=== PATIENT | female | born 1930 | race Caucasian/White ===

== ENCOUNTER → 2017-01-09 | Outpatient (CLI) | payer OTHER | END | disposition home or self-care (01) | LOC: PCVCCLINIC 15:00 | PROVIDERS: ATTEND Internal Medicine Cardiovascular Disease | DX: I63.532 Cerebral infarction due to unspecified occlusion or stenosis of left posterior cerebral artery (principal); I10 Essential (primary) hypertension; E78.5 Hyperlipidemia, unspecified; R47.1 Dysarthria and anarthria; Z88.0 Allergy status to penicillin; Z88.5 Allergy status to narcotic agent; Z88.8 Allergy status to other drugs, medicaments and biological substances; Z79.82 Long term (current) use of aspirin; Z79.899 Other long term (current) drug therapy; Z86.73 Personal history of transient ischemic attack (TIA), and cerebral infarction without residual deficits | CPT/HCPCS: 80061; 93005; G0463 ==

== ENCOUNTER → 2017-11-14 | Outpatient (CLI) | payer OTHER | END | disposition home or self-care (01) | LOC: PCVCCLINIC 12:22 | DX: I65.23 Occlusion and stenosis of bilateral carotid arteries (principal); I10 Essential (primary) hypertension; Z86.73 Personal history of transient ischemic attack (TIA), and cerebral infarction without residual deficits; Z87.891 Personal history of nicotine dependence; Z79.82 Long term (current) use of aspirin; Z79.899 Other long term (current) drug therapy | CPT/HCPCS: 80061; 93005; 93880; G0463 ==

== ENCOUNTER → 2018-05-22 | Outpatient (CLI) | payer OTHER ==
--- NOTE | 2018-05-22 14:15 | PCVCIMAG ---
APPROVED REPORT Study performed: 05/22/2018 09:41:41 Exam: Stress Echocardiogram Indication: Chest pain , Pre-Operative CV evaluation Patient Location: Echo lab Stress Nurse: Elizabeth Wilkins RN Room #: 2 Status: routine Ht: 5 ft 0 in HR: 78 bpm BP: 168/86 mmHg Rhythm: NSR Medical History Medical History: PAD,CVA Cardiac Risk Factors: PAD Previous Cardiac Procedures: none Pretest Chest Pain Characteristics: No chest pain Procedure The patient underwent an Exercise Stress Test using the Bhavesh Protocol. Blood pressure, heart rate, and EKG were monitored. An Echocardiogram was performed by waste management recycling technician in four stages in quad fashion. At peak stress, four selected images were obtained and placed side by side with resting images for comparison. Stress Test Details Stress Test: Exercise stress testing was performed using a Bhavesh protocol. HR Resting HR: 78 bpmMax Heart Rate (APMHR): 134 bpm Max HR Achieved: 127 bpmTarget HR (85% APMHR): 113 bpm % of APMHR: 94 Recovery HR: 81 bpm HR response to stress: Normal HR response to stress BP Resting BP: 168/86 mmHg Max BP: 170/80 mmHg Recovery BP: 120/80 mmHg ECG Resting ECG: Sinus Rhythm Stress ECG: Sinus Rhythm, NSSTT changes ST Change: Non-ischemic Arrhythmia: None Recovery ECG: Sinus Rhythm Recovery ST Change: Non-ischemic Recovery Arrhythmia: None Clinical Reason for Termination: Maximal effort Stress Symptoms: Chest pain, Dyspnea Exercise duration: 4 min 18 sec Highest Stage Achieved: Stage 2: 2.5 mph at 12% grade. Exercise capacity: 7 METs Overall Exercise Capacity for Age: Average Scale: Active Angina Score: Non-Limiting No complications. Stress ECG Conclusion The patient exercised according to the BHAVESH protocol for 4:18 mins; achieving a work level of 7.0 METS. The resting heart rate of 78 bpm nina to a maximum heart rate of 127 bpm. This value represent 94% of the maximal, age-predicted heart rate. The resting blood pressure of 168/86 mmHg, nina to a maximum blood pressure of 170/80 mmHg. The exercise test was stopped due to fatigue . Pre-Stress Echo The resting Echocardiogram showed normal left ventricular contractility with an estimated Ejection Fraction of about 55-60%. Normal wall motion in all segments on baseline images. Post-Stress Echo The stress Echocardiogram showed normal left ventricular contractility with an estimated Ejection Fraction of about 60-65%. Normal augmentation of wall motion in all segments on post stress images. Clinical No clinical or ECG evidence for ischemia. Conclusion Clinical Response: Equivocal Exercise Capacity: Average Stress ECG Response: Equivocal Stress Echo Images: Non-ischemic Nondiagnostic clinical, EKG or echocardiographic evidence for ischemia. No echocardiographic evidence for exercise induced ischemia. clinical, EKG or echocardiographic evidence for ischemia. <Conclusion> Nondiagnostic clinical, EKG or echocardiographic evidence for ischemia. No echocardiographic evidence for exercise induced ischemia. clinical, EKG or echocardiographic evidence for ischemia.
== END | disposition home or self-care (01) ==
LOC: PCVCIMAG 12:44
PROVIDERS: ATTEND Internal Medicine Cardiovascular Disease
DX: I10 Essential (primary) hypertension (principal); G45.9 Transient cerebral ischemic attack, unspecified; I63.9 Cerebral infarction, unspecified
CPT/HCPCS: 93325; 93351